=== PATIENT | female | born 1990 ===

== ENCOUNTER 2018-01-30 00:29 | Inpatient (IN) ==
[2018-01-30] MEDS: LACTATED RINGERS 1,000 ML IV SCH ×2 (02:23→10:54)
[2018-01-30] MEDS: OXYTOCIN/LR 20 UNIT/1,000 ML BAG IV SCH (02:23)
[2018-01-30 02:24] LABS: Apearance,Urine Slightly Hazy (Clear); Bacteria,Urine Occasional /HPF (Few); Bilirubin,Urine Negative (Negative); Blood, Urine Negative (Negative); Glucose,Urine (UA) 50 mg/dL (Negative); Ketones,Urine 5 mg/dL (Negative); Mucus,Urine Occasional /LPF (Occasional); Nitrite,Urine Negative (Negative); Protein,Urine 30 MG/DL; RBC,Urine <1 /HPF (0-4); Squamous Epithelial Cell,Urine Few /HPF (0-10); Urine Color Yellow (Yellow); Urine Specific Gravity 1.025 (1.001-1.035); Urine Urobilinogen < 2.0 EU/DL (0.2-1.0); WBC,Urine 4 /HPF (0-6)
[2018-01-30] MEDS: AMPICILLIN INJ 2,000 MG in SODIUM CHLORIDE 0.9% 100 ML IV SCH ×2 (02:29→08:43)
[2018-01-30 02:33] LABS: Alanine Aminotransferase 19 U/L (13-56); Albumin 2.5 G/DL (3.4-5.0); Alkaline Phosphatase 197 U/L (45-117); Aspartate Amino Transferase 15 U/L (0-37); Bilirubin,Total < 0.39 MG/DL (0.2-1.0); Blood Urea Nitrogen 15 MG/DL (7-18); Calcium 8.1 MG/DL (8.5-10.1); Glucose 100 MG/DL (74-106); Osmolality,Calculated 279.4 MOS/KG (273-304); Potassium 4.2 MMOL/L (3.5-5.1); Sodium 140 MMOL/L (136-145); Total Protein 6.7 G/DL (6.4-8.3)
[2018-01-30 02:46] LABS: Basophils % 0.6 % (0.0-0.8); Eosinophils # 0.1 10*3/uL (0.0-0.87); Eosinophils % 1.2 % (0.00-10.9); Hematocrit 30.8 VOL% (35.7-47.0); Hemoglobin 9.5 GM/DL (12.0-16.0); Immature Granulocytes % 0.4 %; Immature Granulocytes Absolute 0.03 #; Lymphocytes # 1.8 10*3/uL (1.4-4.0); Lymphocytes % 25.9 % (21.3-54.2); Mean Corpuscular HGB Conc 30.8 GM/DL (32-36); Mean Corpuscular Hemoglobin 24 PG (27-34); Mean Corpuscular Volume 77.6 FL (87-102); Mean Platelet Volume 10.5 FL (9.6-12.0); Monocytes # 0.7 10*3/uL (0.11-0.8); Monocytes % 9.8 % (1.7-12.7); Neutrophils # 4.3 10*3/uL (1.4-7.4); Neutrophils % 62.1 % (38.7-73.9); Platelet Count 343 T/CUMM (130-400); Red Blood Count 3.97 MC/CUMM (3.8-5.5); Red Cell Distribution Width 15.9 % (9.3-17.3)
[2018-01-30] MEDS ORDERED: ePHEDrine 50 MG/ML AMP IV PRN (09:11)
[2018-01-30] MEDS ORDERED: hydrOXYzine HCL 25 MG/1 ML VIAL IM PRN (09:11)
[2018-01-30] MEDS ORDERED: NALOXONE 0.4 MG/ML VIAL IV PRN (09:11)
[2018-01-30] MEDS ORDERED: PROMETHAZINE 25 MG/1 ML VIAL IM ONE ×2 (09:11→19:00)
[2018-01-30] MEDS ORDERED: diphenhydrAMINE 50 MG/1 ML VIAL IV PRN ×2 (09:11)
[2018-01-30] MEDS ORDERED: FAMOTIDINE 20 MG/2 ML VIAL IV ONE ×2 (09:13→19:00)
[2018-01-30] MEDS ORDERED: CITRIC ACID/SODIUM CITRATE 30 ML UDCUP PO ONE ×2 (09:13→19:00)
[2018-01-30] MEDS: ONDANSETRON 4 MG/2 ML VIAL IV PRN ×2 (10:38→15:51)
[2018-01-30] MEDS: BUTORPHANOL 2 MG/ML VIAL IV PRN ×2 (10:40→15:51)
[2018-01-30] MEDS ORDERED: OXYTOCIN/LR 20 UNIT/1,000 ML BAG IV ONE ×2 (18:08→19:53)
[2018-01-30] MEDS ORDERED: ceFAZolin 3,000 MG in SYRINGE 1 EACH IV ONE (18:30)
[2018-01-30] MEDS ORDERED: SIMETHICONE CHEW 80 MG TABLET PO PRN (19:53)
[2018-01-30] MEDS ORDERED: RHO(D) IMMUNE GLOBULIN 300 MCG SYRINGE IM ONE (19:53)
[2018-01-30] MEDS ORDERED: ONDANSETRON 4 MG/2 ML VIAL IV PRN (19:53)
[2018-01-30] MEDS ORDERED: ACETAMINOPHEN 325 MG TABLET PO PRN (19:53)
[2018-01-30] MEDS ORDERED: MAGNESIUM HYDROXIDE SUSP 30 ML UDCUP PO PRN (19:53)
[2018-01-30] MEDS ORDERED: BUPIVACAINE SPINAL 0.75% 2 ML AMP SPINAL ONE (20:39)
[2018-01-30] MEDS ORDERED: MORPHINE 10 MG/10 ML VIAL ONE (20:39)
[2018-01-30] MEDS ORDERED: fentaNYL 100 MCG/2 ML VIAL ONE (20:39)
[2018-01-30] MEDS ORDERED: KETOROLAC 30 MG/1 ML VIAL ONE (20:40)
[2018-01-30] MEDS ORDERED: ONDANSETRON 4 MG/2 ML VIAL ONE (20:40)
[2018-01-30 20:52] LABS: Apearance,Urine CLEAR (Clear); Bacteria,Urine Occasional /HPF (Few); Bilirubin,Urine Negative (Negative); Blood, Urine Negative (Negative); Glucose,Urine (UA) Negative (Negative); Ketones,Urine 20 mg/dL (Negative); Nitrite,Urine Negative (Negative); Protein,Urine Negative; RBC,Urine <1 /HPF (0-4); Urine Color Straw (Yellow); Urine Specific Gravity 1.004 (1.001-1.035); Urine Urobilinogen < 2.0 EU/DL (0.2-1.0); WBC,Urine <1 /HPF (0-6)
[2018-01-30] MEDS: DOCUSATE SODIUM 100 MG CAPSULE PO SCH (21:49)
[2018-01-31] MEDS: fentaNYL 2 MCG/ROPIV 0.2% EPID 100 ML EPIDURAL SCH (01:10)
[2018-01-31] MEDS: LACTATED RINGERS 1,000 ML IV SCH ×4 (01:11→22:02)
[2018-01-31] MEDS: ceFAZolin 1,000 MG in SYRINGE 1 EACH IV SCH ×2 (02:38→10:22)
[2018-01-31 04:29] LABS: Basophils % 0.4 % (0.0-0.8); Eosinophils % 0.1 % (0.00-10.9); Hemoglobin 7.9 GM/DL (12.0-16.0); Immature Granulocytes % 1.4 %; Immature Granulocytes Absolute 0.15 #; Lymphocytes # 1.4 10*3/uL (1.4-4.0); Lymphocytes % 13.4 % (21.3-54.2); Mean Corpuscular HGB Conc 31.6 GM/DL (32-36); Mean Corpuscular Hemoglobin 24 PG (27-34); Mean Corpuscular Volume 76.9 FL (87-102); Mean Platelet Volume 10.7 FL (9.6-12.0); Monocytes # 0.8 10*3/uL (0.11-0.8); Monocytes % 7.7 % (1.7-12.7); NRBC # 0.02 10*3/uL; Neutrophils # 8.2 10*3/uL (1.4-7.4); Platelet Count 257 T/CUMM (130-400); Red Blood Count 3.25 MC/CUMM (3.8-5.5); Red Cell Distribution Width 15.9 % (9.3-17.3); White Blood Count 10.6 T/CUMM (4-12)
[2018-01-31] MEDS: OXYTOCIN/LR 20 UNIT/1,000 ML BAG IV SCH (06:22)
[2018-01-31] MEDS: FERROUS SULFATE 325 MG TABLET PO SCH ×3 (08:39→20:06)
[2018-01-31] MEDS: DOCUSATE SODIUM 100 MG CAPSULE PO SCH ×2 (08:39→20:06)
[2018-01-31] MEDS: MULTIVITAMIN (PRENATAL) TABLET PO SCH (08:39)
[2018-01-31] MEDS: IBUPROFEN 800 MG TABLET PO PRN ×2 (11:07→20:06)
[2018-01-31] MEDS ORDERED: ONDANSETRON 4 MG TABLET PO PRN (11:13)
[2018-01-31] MEDS ORDERED: diphenhydrAMINE CAP 25 MG CAPSULE PO PRN (12:37)
[2018-02-01] MEDS: OXYTOCIN/LR 20 UNIT/1,000 ML BAG IV SCH (01:30)
[2018-02-01] MEDS: LACTATED RINGERS 1,000 ML IV SCH (04:18)
[2018-02-01 07:26] VITALS: BP 115/68
[2018-02-01] MEDS: DOCUSATE SODIUM 100 MG CAPSULE PO SCH (10:16)
[2018-02-01] MEDS: MULTIVITAMIN (PRENATAL) TABLET PO SCH (10:16)
[2018-02-01] MEDS: FERROUS SULFATE 325 MG TABLET PO SCH ×2 (10:16→15:57)
[2018-02-01] MEDS ORDERED: DIPH/TET/ACEL PERT BOOSTER VACCINE 0.5 ML VIAL IM ONE (13:41)
== END 2018-02-01 15:00 | disposition home or self-care (01) | DRG 766 ==
LOC: N.LDOUT 00:29 → N.LD 00:35 → N.OB 23:10
PROVIDERS: ADMIT Obstetrics & Gynecology; ATTEND Obstetrics & Gynecology
PROC: LDCSECT (ICD-10-PCS; 2018-01-30 19:30)